=== PATIENT | female | born 1935 ===

== ENCOUNTER 2017-09-19 07:18 | Day surgery (SDC) | payer MEDICARE ==
[2017-09-19] MEDS ORDERED: Pantoprazole 40 mg EC Tab PO STA (09:23)
--- NOTE | 2017-09-19 09:23 | CP.SDSHP ---
Same Day Surgery H & P - History Proposed Procedure: egd Pre-Op Diagnosis: heartburn. dysphagia. epigastric pain - Previous Medical/Surgical History Cardiac: Hypertension Neuro: Other (Myesthenia gravis) Misc: Other (Gerd, gallstones) Previous Surgical History: ESTEPHANIA. Bladder suspension - Allergies Allergies: Allergies No Known Allergies Allergy (Verified 09/19/17 07:45) - Physical Exam Vital Signs: Vital Signs 09/19/17 09/19/17 07:45 09:15 Temperature 97.3 F L 97.3 F L Pulse Rate 55 L 55 L Respiratory 19 19 Rate Blood Pressure 152/75 H 152/75 H O2 Sat by Pulse 99 99 Oximetry Mental Status: Alert & Oriented x3 Neuro: WNL Heart: WNL Lungs: WNL GI: WNL - {Optional Preform as Required} Other Pertinent Findings: Cardiac clearance obtained from Cardiology and provided to anesthesiologist at time of procedure. - Impression Impression: dysphagia. heartburn. epigastric pain in spite of PPIs Pt. Evaluated Today:Candidate for Anesthesia & Procedure: Yes - Date & Time Date: 09/19/17 Time: 09:22 Short Stay Discharge - Short Stay Discharge Admitting Diagnosis/Reason for Visit: EPIGASTRIC PAIN / HEARTBURN / DYSPHAGIA Disposition: HOME/ ROUTINE
[2017-09-19] MEDS ORDERED: Propofol 10 mg/ml Inj (20 ML) ONE ×2 (09:24→09:35)
[2017-09-19] MEDS ORDERED: Lactated Ringer's 1,000 ML IV SCH (10:00)
[2017-09-19 10:12] VITALS: TEMP 98; O2SAT 100
[2017-09-19 10:15] VITALS: RESP 18
[2017-09-19 11:14] VITALS: BP 134/61; PULSE 66
== END 2017-09-19 11:17 | disposition home or self-care (01) ==
LOC: C.ENDO 07:18
PROVIDERS: ATTEND Internal Medicine Gastroenterology
DX: K22.5 Diverticulum of esophagus, acquired (principal); K44.9 Diaphragmatic hernia without obstruction or gangrene; K21.0 Gastro-esophageal reflux disease with esophagitis; K29.70 Gastritis, unspecified, without bleeding; K31.89 Other diseases of stomach and duodenum; K59.00 Constipation, unspecified; I10 Essential (primary) hypertension; G70.00 Myasthenia gravis without (acute) exacerbation; K80.20 Calculus of gallbladder without cholecystitis without obstruction; Z98.890 Other specified postprocedural states; Z90.710 Acquired absence of both cervix and uterus; Z79.82 Long term (current) use of aspirin; Z79.899 Other long term (current) drug therapy
CPT/HCPCS: 43239; 88305; J2001; J2704; J7120